=== PATIENT | male | born 1960 | race Caucasian/White ===

== ENCOUNTER 2017-06-27 17:01 | Emergency (ER) | payer MEDICAID ==
[~2017-06-27] VITALS: Ht 165.1 cm; Wt 63.5 kg
--- NOTE | 2017-06-27 17:07 | NUR ---
RT THUMB AVULSION S/P CUT WHILE CUTTING TREE BRANCHES 2 HRS AGO TETANUS SHOT NOT UPDATED
[2017-06-27] MEDS ORDERED: LIDOCAINE /MPF 1% VIAL 5 ML VIAL ONE (17:24)
[2017-06-27] MEDS ORDERED: TDAP [DIPH/PERTUSSIS/TET] 0.5 ML VIAL IM ONE ×2 (17:28→17:30)
--- NOTE | 2017-06-27 18:32 | NUR ---
Patient discharged to home in stable condition. Written and verbal after care instructions given. Patient verbalizes understanding of instruction.
[2017-06-27 19:10] VITALS: BP 120/72
== END 2017-06-27 19:11 | disposition home or self-care (01) ==
LOC: ER 17:15
DX: S61.011A Laceration without foreign body of right thumb without damage to nail, initial encounter (principal); W45.8XXA Other foreign body or object entering through skin, initial encounter; Y93.H2 Activity, gardening and landscaping; Y92.89 Other specified places as the place of occurrence of the external cause; Y99.8 Other external cause status
CPT/HCPCS: 73140-TC; 90715; A4606; A6402; J3490; Z7610